=== PATIENT | male | born 1945 | race Caucasian/White ===

== ENCOUNTER 2018-01-19 13:31 | Outpatient (CLI) | payer MEDICARE, BC ==
[~2018-01-19 13:31] MED LIST: Iopamidol 370 76% 100 ML VIAL ONE
--- NOTE | 2018-01-19 15:53 | CT ---
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 Evaluate for aneurysm. Possible transient ischemic attack. Double v ision for three weeks involving the right eye. Right temporal pain. COMPARISON: None. TECHNIQUE: CT angiogram of the [place] is performed in the axial plane. Sagittal, coronal and three dim ensional reformatted images are submitted for interpretation. FINDINGS: NONCONTRAST HEAD CT: No parenchymal hemorrhage. No extra-axial hematoma. No midline shift. Basilar cisterns are patent. Brain volume is age appropriate. Cortical leggtet-white matter differentiat ion is preserved. Ventricles and sulci are patent and symmetric. Calvarium is intact. Adequate aeration of the mastoid air cells. Small mucous retention cyst in the l eft maxillary sinus. No pathologic enhancement of the brain parenchyma. Chronic small vessel ischemic changes of the white matter are noted. CT ANGIOGRAM: The distal cervical and intracranial internal carotid arteries have appropriate enhancement and lumin al diameter. There is atherosclerotic disease in both cavernous segments without significant stenosis . Atherosclerotic disease in both paraclinoid segments with mild narrowing. ANTERIOR CIRCULATION: The A1 and M1 segments have essentially symmetric enhancement and luminal diameter. No significant st enosis. Proximal A2 segments and proximal MCA branches are unremarkable. No evidence of MCA trifurcat ion or anterior communicating artery aneurysm. There is no evidence of PCOM aneurysm. Both vertebral arteries are patent as they enter the foramen m agnum. The right vertebral artery is dominant. Limited evaluation of the left PICA artery origin. Vis ualized right PICA artery is unremarkable. There is atherosclerosis without significant narrowing in the intracranial right vertebral artery. Basilar artery has appropriate enhancement and luminal diameter. The left and right P1 segments have symmetric enhancement and luminal diameter. IMPRESSION: 1. No evidence of aneurysm at the level of [place]. 2. No evidence of a PCOM aneurysm. 3. Age appropriate atrophy and chronic small vessel ischemic change of the white matter are susp ected. POS: OFF
== END 2018-01-19 13:32 | disposition home or self-care (01) ==
LOC: CT 13:31
PROVIDERS: ATTEND Psychiatry & Neurology Neurology
DX: H49.21 Sixth [abducent] nerve palsy, right eye (principal)
CPT/HCPCS: 70496